=== PATIENT | male | born 1940 | race Caucasian/White ===

== ENCOUNTER 2022-07-30 06:14 | Day surgery (SDC) | payer OTHER ==
[~2022-07-30] VITALS: Ht 180.3 cm; Wt 98.1 kg
[2022-07-30] MEDS ORDERED: albumin 25% 100mL bottle x 1 IV PRN (06:35)
[2022-07-30] MEDS ORDERED: LIDOcaine 1% 30ml preserv. free vial SQ STA (07:03)
[2022-07-30 07:05] VITALS: BP 110/71
[2022-07-30] MEDS ORDERED: CIPR-202 PO (07:07)
[2022-07-30] MEDS ORDERED: SPIR50TA5 PO (07:07)
[2022-07-30] MEDS ORDERED: FURO-150 PO (07:07)
[2022-07-30 08:40] VITALS: BP 114/71
[2022-07-30 08:55] VITALS: BP 99/73
[2022-07-30 09:10] VITALS: BP 98/69
[2022-07-30 09:25] VITALS: BP 99/65
[2022-07-30 09:40] VITALS: BP 108/64
== END 2022-07-30 09:40 | disposition home or self-care (01) ==
LOC: SSTAY O 06:14
PROVIDERS: ATTEND Radiology Diagnostic Radiology
DX: R18.8 Other ascites (principal); R14.0 Abdominal distension (gaseous); E78.5 Hyperlipidemia, unspecified; I10 Essential (primary) hypertension; N40.0 Benign prostatic hyperplasia without lower urinary tract symptoms; Z85.05 Personal history of malignant neoplasm of liver; Z79.899 Other long term (current) drug therapy
CPT/HCPCS: 49083; J3490; P9047; A6258

== ENCOUNTER 2022-08-13 10:39 | Day surgery (SDC) | payer OTHER ==
[~2022-08-13] VITALS: Ht 180.3 cm; Wt 96.8 kg
[~2022-08-13 10:39] MED LIST: CIPR-202 PO; FURO-150 PO; SPIR50TA5 PO
[2022-08-13] MEDS ORDERED: SENN-263 PO (11:03)
[2022-08-13] MEDS ORDERED: POLY119P2 PO (11:03)
[2022-08-13 11:14] VITALS: BP 127/75
[2022-08-13] MEDS ORDERED: midazolam 1 mg/ML 2ml injection ONE (12:27)
[2022-08-13] MEDS ORDERED: fentaNYL/PF 50MCG/1 ML 2ML syringe ONE (12:28)
[2022-08-13] MEDS ORDERED: cefazolin 2gm/D5W 100mL 100 ML IV ONE (12:40)
[2022-08-13 13:31] VITALS: BP 105/66
[2022-08-13] MEDS ORDERED: albumin (human) 25% 100 ML IV solution IV ONE (13:40)
[2022-08-13 13:47] VITALS: BP 131/89
[2022-08-13 14:01] VITALS: BP 110/80
[2022-08-13 14:16] VITALS: BP 115/82
[2022-08-13 14:30] VITALS: BP 118/84
== END 2022-08-13 14:40 | disposition home or self-care (01) ==
LOC: SSTAY O 10:39
PROVIDERS: ATTEND Radiology Diagnostic Radiology
DX: R18.8 Other ascites (principal); J90 Pleural effusion, not elsewhere classified; E78.5 Hyperlipidemia, unspecified; I10 Essential (primary) hypertension; Z98.890 Other specified postprocedural states; Z79.899 Other long term (current) drug therapy
CPT/HCPCS: 49418; 99152; 99153; C1769; J2250; J3010; J7030; P9047